=== PATIENT | female | born 1995 | race Caucasian/White ===

== ENCOUNTER 2019-07-27 19:00 | Emergency (ER) | payer MEDICAID ==
[~2019-07-27] VITALS: Ht 167.6 cm; Wt 63.5 kg
[2019-07-27 19:08] VITALS: BP_SYST 122
--- NOTE | 2019-07-27 19:08 | NUR ---
Pt BIB [facility], placed to ER chair 1. Pt here for medical clearance r/t 2 months . Pt denies c/o N/V, vaginal bleeding or discharge. AAOx4, talking with officer. NAD.
--- NOTE | 2019-07-27 20:00 | NUR ---
Dr. Campuzano assessing pt.
--- NOTE | 2019-07-27 20:15 | NUR ---
Pt AAOx4 ambulated into ED in handcuffs BIB [employer] for medical clearance prior to booking. Pt states she is approximately 2 months and states she has a 6/10 headache. Pt [facility] No other injuries/complaints per pt/noted. Will continue to monitor.
[2019-07-27] MEDS ORDERED: ACETAMINOPHEN 325 MG TABLET PO ONE (20:30)
[2019-07-27 21:25] LABS: BILIRUBIN,URINE NEGATIVE (NEGATIVE); BLOOD, URINE NEGATIVE (NEGATIVE); CLARITY/URINE SL CLOUDY (CLEAR); COLOR,URINE YELLOW (YELLOW); GLUCOSE,URINE NEGATIVE (NEGATIVE); KETONES,URINE 1+ (NEGATIVE); LEUKOCYTE ESTERASE ,URINE NEGATIVE (NEGATIVE); NITRITE, URINE POSITIVE (NEGATIVE); PROTEIN URINE NEGATIVE (NEGATIVE); UROBILINOGEN,URINE 0.2 (0.2-1.0)
[2019-07-27 21:31] VITALS: BP_SYST 129
--- NOTE | 2019-07-27 21:31 | NUR ---
Patient given written and verbal discharge instructions and verbalizes understanding. ER MD Campuzano discussed with patient the results and treatment provided. Patient in stable condition. ID arm band removed. No Rx given. Patient educated on pain management and to follow up with PMD. Pain Scale 0. Opportunity for questions provided and answered. Medication side effect fact sheet provided.
[2019-07-27 21:35] LABS: BACTERIA,URINE MANY /HPF (None Seen); MUCUS,URINE None Seen /LPF (None Seen); RBC,URINE NONE SEEN /HPF (0-3)
== END 2019-07-27 21:31 ==
LOC: SED 19:00
DX: O26.891 Other specified pregnancy related conditions, first trimester (principal); O9A.511 Psychological abuse complicating pregnancy, first trimester; R51 Headache; K21.9 Gastro-esophageal reflux disease without esophagitis; Z3A.01 Less than 8 weeks gestation of pregnancy
CPT/HCPCS: 81000-TC; 81025; 87086; 87186-TC; 99283